=== PATIENT | male | born 1945 | race Caucasian/White ===

== ENCOUNTER 2016-08-23 08:00 | Outpatient (CLI) | payer MEDICARE, OTHER ==
[2016-08-23 11:20] LABS: BASOPHILS # (AUTO) 0.1 10^3/uL (0.0-0.1); BASOPHILS % (AUTO) 1.2 %; EOSINOPHILS # (AUTO) 0.2 10^3/uL (0.0-0.7); HCT - HEMATOCRIT 40.3 % (42.0-52.0); HGB - HEMOGLOBIN 13.3 g/dL (14.0-18.0); LYMPHOCYTES # (AUTO) 1.4 10^3/uL (1.5-3.5); MEAN CORPUSCULAR HEMOGLOBIN 29.7 pg (27.0-31.0); MEAN CORPUSCULAR HGB CONC 33.1 g/dL (32.0-36.0); MEAN CORPUSCULAR VOLUME 89.9 fL (80.0-94.0); MEAN PLATELET VOLUME 8.6 fL (7.4-11.4); MONOCYTES # (AUTO) 0.7 10^3/uL (0.0-1.0); MONOCYTES % (AUTO) 11.1 %; NEUTROPHILS # (AUTO) 3.5 10^3/uL (1.5-6.6); NEUTROPHILS % (AUTO) 59.7 %; RED BLOOD COUNT 4.48 10^6/uL (4.70-6.10); RED CELL DISTRIBUTION WIDTH 13.9 % (12.0-15.0); UNCORRECTED WHITE BLOOD COUNT 5.9 x10^3/uL; WHITE BLOOD COUNT 5.9 x10^3/uL (4.8-10.8)
[2016-08-23 11:48] LABS: ALBUMIN/GLOBULIN RATIO 1.2 (1.0-2.2); BILIRUBIN,TOTAL 0.7 mg/dL (0.2-1.0); BUN - BLOOD UREA NITROGEN 15 mg/dL (6-20); CALCIUM 8.6 mg/dL (8.5-10.3); CARBON DIOXIDE - CO2 29 mmol/L (21-32); CHLORIDE 104 mmol/L (101-111); CHOL/HDL RATIO 1.8 (<5.0); CHOLESTEROL 124 mg/dL; CREATININE 0.7 mg/dL (0.6-1.2); GFR - MDRD 111 (>89); GLUCOSE 92 mg/dL (70-100); HDL CHOLESTEROL 69 mg/dL; PHOSPHORUS 2.8 mg/dL (2.5-4.6); POTASSIUM 3.8 mmol/L (3.5-5.0); SODIUM 139 mmol/L (135-145); TOTAL PROTEIN 6.5 g/dL (6.7-8.2); TRIGLYCERIDES 37 mg/dL
[2016-08-23 11:51] LABS: BILIRUBIN,DIRECT < 0.1 mg/dL (0.1-0.5)
[2016-08-23 12:09] LABS: LDL CHOLESTEROL,DIRECT 41 mg/dL
[2016-08-23 13:21] LABS: HEMOGLOBIN A1C 0.76 g/dL
== END 2016-08-23 08:01 | disposition home or self-care (01) ==
LOC: LAB.F 08:00
PROVIDERS: ATTEND Internal Medicine Rheumatology
DX: M35.3 Polymyalgia rheumatica (principal); I10 Essential (primary) hypertension; E10.9 Type 1 diabetes mellitus without complications
CPT/HCPCS: 36415; 80053; 80061; 80069; 80076; 82248; 83036; 84100; 85025; 85651; 86140

== ENCOUNTER 2018-02-17 08:44 | Day surgery (SDC) | payer MEDICARE, OTHER ==
[2018-02-17] MEDS ORDERED: ceFAZolin 2 GM/50 ML 2 GM/50 ML BAG IV ONE (08:53)
--- NOTE | 2018-02-17 09:26 | ANESTHESIA ---
Pre-Anesthesia VS, & Labs - Diagnosis umbilical hernia - Procedure umbilical hernia repair Vital Signs: Temp Pulse Resp BP Pulse Ox 36.5 C 59 L 16 140/59 H 100 02/17/18 09:00 02/17/18 09:00 02/17/18 09:00 02/17/18 09:00 02/17/18 09:00 Height 6 ft 1 in Weight (kg) 83.7 kg - NPO >8 hours Home Medications and Allergies Carvedilol [Coreg] 2.5 mg PO BID 05/21/13 Insulin Lispro [Humalog] 100 unit SQ DAILY 05/21/13 Aspirin [Adult Low Dose Aspirin EC] 81 mg PO DAILY 01/05/14 Atorvastatin [Lipitor] 20 mg PO DAILY 01/05/14 Ramipril [Altace] 10 mg PO DAILY 01/05/14 hydroCHLOROthiazide [Hydrodiuril] 25 mg PO DAILY 01/05/14 Allergies/Adverse Reactions: Allergies Allergy/AdvReac Type Severity Reaction Status Date / Time No Known Drug Allergies Allergy Verified 05/21/13 15:01 Anes History & Medical History - Anesthetic History Anesthesia Complications: reports: No previous complications Family history of Anesthesia Complications: Denies Family history of Malignant Hyperthermia: Denies - Medical History Cardiovascular: reports: Hypertension, High cholesterol Urinary: reports: Other Endocrine/Autoimmune: reports: Type 2 diabetes Smoking Status: Never smoker - Surgical History Eyes Ears Nose Throat (EENT): Tonsil/Adenoidectomy Cardiothoracic: CABG, Coronary stent Urologic: Prostatic surgery Exam General: Alert, Oriented x3, Cooperative, No acute distress Dental: Other (caps) Mouth Openin Fingerbreadth Neck Mobility: Normal Mallampati classification: II Thyromental Distance: 4-6 cm Respiratory: Lungs clear, Normal breath sounds, No respiratory distress, No accessory muscle use Cardiovascular: Normal S1, Normal S2 Cognitive Status: Within normal limits Plan Anesthesia Type: General Consent for Procedure(s) Verified and Reviewed: Yes Code Status: Attempt Resuscitation ASA classification: 2-Mild systemic disease Is this case an emergency?: No
[2018-02-17] MEDS ORDERED: LACTATED RINGERS 1,000 ML IV ONE ×2 (09:31→13:31)
[2018-02-17] MEDS ORDERED: BUPIVACAINE 0.5% PF 30 ML VIAL ONE (11:56)
[2018-02-17] MEDS ORDERED: BUPIVACAINE 0.5% PF 30 ML VIAL INFIL ONE (12:50)
[2018-02-17] MEDS ORDERED: DEXAMETHASONE 4 MG/ML VIAL IVP ONE (13:00)
[2018-02-17] MEDS ORDERED: MIDAZOLAM 2 MG/2 ML VIAL IVP ONE (13:00)
[2018-02-17] MEDS ORDERED: PROPOFOL 200 MG/20 ML VIAL IVP ONE (13:00)
[2018-02-17] MEDS ORDERED: ONDANSETRON 4 MG/2 ML VIAL IVP ONE (13:00)
[2018-02-17] MEDS ORDERED: fentaNYL 100 MCG/2 ML VIAL IVP ONE (13:00)
[2018-02-17] MEDS ORDERED: LIDOCAINE-MPF 2% 5 ML VIAL IM ONE (13:00)
[2018-02-17] MEDS ORDERED: HYDROmorphone 0.5 MG/0.5 ML SYRINGE IVP PRN (14:08)
[2018-02-17] MEDS ORDERED: HYDROcod/ACETAM 5/325 MG TABLET PO PRN (14:08)
[2018-02-17] MEDS ORDERED: ONDANSETRON 4 MG/2 ML VIAL IVP PRN (14:08)
--- NOTE | 2018-02-17 14:11 | OPERATIVE REPORT ---
Operative Report - General Procedure Date: 02/17/18 Planned Procedure: Umbilical herniorrhaphy Pre-Op Diagnosis: Umbilical hernia Procedure Performed: Umbilical herniorrhaphy with mesh Post Op Diagnosis: Umbilical hernia - Procedure Note Primary Surgeon: Vadim Marin MD Anesthesia Provider: Isaak Dunham CRNA Anesthesia Technique: General ET tube, Local (30 mL of half percent Marcaine) IV Fluids (mL): 800 Estimated Blood Loss (mL): 5 Complications: None. - Other Other Information/Narrative: OPERATIVE DESCRIPTION/REPORT: After verbal and written informed consent was obtained detailing the risks of infection, bleeding requiring transfusion with its risks, nerve injury, and , and after I met with the patient confirming the surgery and the site of the surgery, the patient was brought to the operative suite and placed supine on the operating table. Great care was taken to avoid pressure points to prevent pressure necrosis or nerve injury. Monitoring devices were applied along with TEDs and pneumatic compressive stockings (to prevent DVT). The patient received preoperative antibiotics for surgical prophylaxis. Isaak Dunham CRNA sedated and anesthetized the patient for the entire procedure. The patient was prepped and draped in the usual sterile manner. With the patient draped my initials were clearly visible. A "time in" then confirmed that the paitient was identified with 3 identifiers (name, birthdate and medical record number), the history and physical was in the chart, the signed consent confirming the procedure was in the chart, the patient was in the correct position, the aforementioned prophylactic measures were in place or given, we had the correct personnel and equipment to complete the procedure and that anesthesia, surgery and nursing were given an opportunuty to express any concerns. With the agreement of everyone in the room, we proceeded with the operation. After injecting the area with % Marcaine, a standard curvilinear umbilical incision was made and dissection was carried down to the hernia sac using a combination of Metzenbaum scissors and Bovie electrocautery. The sac was cleared of overlying adherent tissue, and the fascial defect was delineated. The fascia was cleared of any adherent tissue for a distance 1.5 cm from the defect. The sac was resected using Bovie electrocautery. The defect was closed using a 3.2 inch or [address] hernia patch (Ref#[id number], Lot#[id number], use by 2019-10-05). This was secured to the fascia using interrupted 0 PDS sutures superiorly and inferiorly utilizing the straps and trimming the excess s trap. Laterally I placed a 2-0 PDS for additional support. The patient was then given an ``innie by suturing the back of the umbilicus to the fascia using a 2-0 Vicryl. Meticulous hemostasis was obtained using Bovie electrocautery. The skin incision was approximated with a running subcuticular 4-0 Monocryl. After the prep was washed off, Dermabond was applied. A dressing was then applied. At this point a time out was performed that confirmed that all the counts were correct, the procedure that was performed, the blood loss, the IV fluids administered, and the patients condition. Having tolerated the procedure well, the patient was subsequently taken to recovery room in good and stable condition. [place]it[place] disclaimer: This document was created in part using voice recognition technology. Because of the inherent limitations of the system ([employer] user manual states that the licensee understands that speech recognition is a statistical process and that recognition errors are inherent in the process), occasional same sounding word substitutions and grammatical errors do occur and persist despite proofreading. Please read this document for context.
[2018-02-17] MEDS ORDERED: HYDROcod/ACETAM 5/325 MG TABLET ONE (15:11)
[2018-02-17 15:19] VITALS: BP 132/61
== END 2018-02-17 08:45 | disposition home or self-care (01) ==
LOC: SDS 08:44
PROVIDERS: ATTEND Surgery
PROC: 0WUF0JZ Supplement Abdominal Wall with Synthetic Substitute, Open Approach (ICD-10-PCS; principal; 2018-02-17 11:30)
DX: K42.9 Umbilical hernia without obstruction or gangrene (principal); I25.10 Atherosclerotic heart disease of native coronary artery without angina pectoris; E11.9 Type 2 diabetes mellitus without complications; Z79.4 Long term (current) use of insulin; I25.2 Old myocardial infarction; I10 Essential (primary) hypertension; E78.5 Hyperlipidemia, unspecified; N40.0 Benign prostatic hyperplasia without lower urinary tract symptoms
CPT/HCPCS: 49585; A9270; C1781; J0690; J7120

== ENCOUNTER 2018-10-06 12:33 | Outpatient (CLI) | payer MEDICARE, OTHER ==
--- NOTE | 2018-10-06 14:55 | Ultrasound Report ---
Reason: PAIN IN SCROTUM Procedure Date: 10/06/2018 Accession Number: [id number] / [id number] Procedure: US - Testicle CPT Code: FULL RESULT: EXAM: SCROTAL ULTRASOUND EXAM DATE: 10/06/2018 01:57 PM. CLINICAL HISTORY: PAIN IN SCROTUM. COMPARISON: None. TECHNIQUE: Real-time scanning was performed with static images obtained. Color-flow images were utilized. FINDINGS: Right: Testis: 4.5 x 2.6 x 3.0 cm. Normal size and echotexture. No mass, calcification, or abnormal blood flow. Epididymis: 2.6 x 1.0 x 1.5 cm. Normal size and echotexture. No mass or abnormal blood flow. Hydrocele: Small hydrocele. Varicocele: Moderate to large varicocele impinges on the testicle and deforms it slightly. Left: Testis: 3.3 x 1.6 x 2.2 cm. Normal size . Irregular contour. Heterogeneous with hypoechoic regions anteriorly and posteriorly, but no definite mass or calcification. The anterior hypoechoic area is vascular and fills with Valsalva. Epididymis: 1.7 x 1.0 x 1.6 cm. Normal size and echotexture. No mass or abnormal blood flow. Hydrocele: Trace hydrocele. Varicocele: Large varicocele. IMPRESSION: 1. Bilateral varicoceles, left larger than right, with testicular involvement, left more than right. 2. Small bilateral hydroceles. RADIA
== END 2018-10-06 12:34 | disposition home or self-care (01) ==
LOC: DI 12:33
PROVIDERS: ATTEND Nurse Practitioner Family
DX: N43.3 Hydrocele, unspecified (principal)
CPT/HCPCS: 76870

== ENCOUNTER 2020-07-21 13:03 | Outpatient (CLI) | payer MEDICARE, OTHER ==
--- NOTE | 2020-07-21 13:50 | XRAY Report ---
PROCEDURE: Knee 3 View BILAT INDICATIONS: BILAT KNEE PAIN TECHNIQUE: 3 views of the left and right knee(s) were acquired. COMPARISON: None. FINDINGS: No acute fracture identified. Scattered subchondral sclerosis and spurring. Scattered vascular calci fications incidentally noted. Trace bilateral knee effusions. Spurring at the superior pole of the pa tellas bilaterally. Mild medial joint space narrowing bilaterally. IMPRESSION: Mild bilateral knee osteoarthritis. If the patient's pain or other symptoms persist, consider further evaluation with MRI. Trace bilateral knee effusions Reviewed by: Milad Biswas MD on 07/21/2020 1:49 PM PDT Approved by: Milad Biswas MD on 07/21/2020 1:49 PM PDT Station ID: [id number]
== END 2020-07-21 13:04 | disposition home or self-care (01) ==
LOC: DI 13:03
PROVIDERS: ATTEND Family Medicine
DX: M25.561 Pain in right knee (principal); M25.562 Pain in left knee; M17.0 Bilateral primary osteoarthritis of knee

== ENCOUNTER 2020-09-15 08:00 | Outpatient (CLI) | payer MEDICARE, OTHER ==
[2020-09-15 20:10] LABS: BASOPHILS # (AUTO) 0.1 10^3/uL (0.0-0.1); BASOPHILS % (AUTO) 0.7 %; EOSINOPHILS # (AUTO) 0.5 10^3/uL (0.0-0.7); EOSINOPHILS % (AUTO) 6.7 %; HCT - HEMATOCRIT 42.2 % (42.0-52.0); HGB - HEMOGLOBIN 13.8 g/dL (14.0-18.0); LYMPHOCYTES # (AUTO) 1.6 10^3/uL (1.5-3.5); LYMPHOCYTES % (AUTO) 23.3 %; MEAN CORPUSCULAR HEMOGLOBIN 31.5 pg (27.0-31.0); MEAN CORPUSCULAR HGB CONC 32.7 g/dL (32.0-36.0); MEAN CORPUSCULAR VOLUME 96.3 fL (80.0-94.0); MEAN PLATELET VOLUME 10.5 fL (7.4-11.4); MONOCYTES # (AUTO) 0.8 10^3/uL (0.0-1.0); MONOCYTES % (AUTO) 11.6 %; NEUTROPHILS % (AUTO) 57.4 %; PLT - PLATELET COUNT 218 10^3/uL (130-450); RED BLOOD COUNT 4.38 10^6/uL (4.70-6.10); RED CELL DISTRIBUTION WIDTH 13.1 % (12.0-15.0)
[2020-09-15 20:23] LABS: CALCIUM 8.7 mg/dL (8.5-10.3); CREATININE 0.8 mg/dL (0.6-1.2); URIC ACID 4.3 mg/dL (2.6-7.2)
== END 2020-09-15 23:59 | disposition home or self-care (01) ==
LOC: LAB.S 08:00
PROVIDERS: ATTEND Emergency Medicine
DX: E10.59 Type 1 diabetes mellitus with other circulatory complications (principal); M25.572 Pain in left ankle and joints of left foot
CPT/HCPCS: 36415; 80048; 84550; 85025

== ENCOUNTER 2020-09-21 09:25 | Outpatient (CLI) | payer MEDICARE, OTHER ==
[2020-09-21 15:25] LABS: CORTISOL 10.2 ug/dL
[2020-09-21 15:29] LABS: THYROID STIMULATING HORMONE 5.07 uIU/mL (0.34-5.60)
[2020-09-21 15:41] LABS: CREATININE,URINE 85.7 mg/dL; MICROALBUM/CREATININE RATIO,UR 43.2 ug/mg (<30.0); MICROALBUMIN,URINE 3.7 mg/dL (0-300.0)
[2020-09-21 19:57] LABS: ESTIMATED AVERAGE GLUCOSE 131 mg/dL (70-100); HEMOGLOBIN A1c% 6.2 % (4.27-6.07)
== END 2020-09-21 09:26 | disposition home or self-care (01) ==
LOC: LAB.S 09:25
PROVIDERS: ATTEND Nurse Practitioner
DX: E10.42 Type 1 diabetes mellitus with diabetic polyneuropathy (principal)
CPT/HCPCS: 36415; 82043; 82533; 82570; 83036; 84443

== ENCOUNTER 2020-11-06 08:10 | Outpatient (CLI) | payer MEDICARE, OTHER ==
--- NOTE | 2020-11-06 15:25 | MRI Report ---
PROCEDURE: Knee LT W/O INDICATIONS: PAIN IN LEFT KNEE TECHNIQUE: Noncontrast sagittal PD fast spin echo and T2 fast spin echo with fat saturation, sagittal 3-D gradie nt sequence with fat saturation; coronal T1 spin echo and PD fast spin echo with fat saturation, and axial PD fast spin echo with fat saturation through the knee. COMPARISON: None. FINDINGS: Image quality: Excellent. Menisci: Complex oblique tear involving posterior horn of medial meniscus is seen extending to both s uperior and inferior articulating surfaces. Peripheral displacement of medial meniscus is noted bowin g medial collateral ligament. There is no evidence of focal lateral meniscal tear. The meniscal root ligaments appear intact. Cruciate ligaments: The anterior and posterior cruciate ligaments appear intact. Medial structures: Low to moderate grade MCL sprain/partial thickness tear is seen. The posterior obl ique ligament, semimembranosus tendon insertions, and oblique popliteal ligament, and meniscocapsular junction appear intact. Visualized portions of the pes anserinus tendons appear normal. No abnorma l bursal fluid. Lateral structures: The lateral collateral ligament, long and short heads of the biceps femoris tend on appear intact. The popliteus tendon appears normal; the popliteofibular ligament appears intact. The posterosuperior and anteroinferior popliteomeniscal fascicles appear intact. The arcuate and fa bellofibular ligaments appear intact, around the lateral inferior geniculate artery. Iliotibial band appears normal. Anterior structures: Tendinosis and low to moderate grade partial-thickness tear involving distal cm driceps tendon at its superior patella insertion is seen. Tendinosis and low-grade partial-thickness tear involving proximal patella tendon at its inferior patella insertion is also seen. No full-thickn ess tendon rupture. Patellar alignment is normal. No femoral trochlear dysplasia or ventral trochlea r prominence. No edema in the infrapatellar fat pad. Bones and cartilage: No bone marrow contusions or fractures. There is mild to moderate tricompartmen timmy osteoarthritis and chondromalacia more prominent in medial femoral tibial compartment. Joint space: There is small amount of joint fluid, no gross intra-articular loose body. Small poplit eal cyst is seen. Normal appearing synovial plicae are incidentally noted. IMPRESSION: 1. Complex oblique tear involving posterior horn of medial meniscus extending to both superior and in ferior articulating surfaces. No focal lateral meniscal tear. 2. Cruciate ligaments are intact. Low to moderate grade MCL sprain/partial thickness tear. 3. Tendinosis and low to moderate grade partial-thickness tear involving distal quadriceps tendon at its superior patella insertion. Tendinosis and low-grade partial-thickness tear involving proximal pa tella tendon at its inferior patella insertion. 4. Mild to moderate tricompartmental osteoarthritis and chondromalacia most prominent in medial femor al tibial compartment. Small amount of joint fluid, no gross loose body. Small popliteal cyst. Reviewed by: John Oliva MD on 11/06/2020 3:24 PM PDT Approved by: John Oliva MD on 11/06/2020 3:24 PM PDT Station ID: [id number]
== END 2020-11-06 08:11 | disposition home or self-care (01) ==
LOC: DI 08:10
PROVIDERS: ATTEND Family Medicine
DX: S83.232A Complex tear of medial meniscus, current injury, left knee, initial encounter (principal); S83.412A Sprain of medial collateral ligament of left knee, initial encounter; S76.122A Laceration of left quadriceps muscle, fascia and tendon, initial encounter; M17.12 Unilateral primary osteoarthritis, left knee; M94.262 Chondromalacia, left knee; M71.22 Synovial cyst of popliteal space [Baker], left knee

== ENCOUNTER 2021-04-05 08:37 | Outpatient (CLI) | payer MEDICARE, OTHER ==
[2021-04-05 09:48] LABS: BUN - BLOOD UREA NITROGEN 16 mg/dL (6-20); CALCIUM 8.7 mg/dL (8.5-10.3); CARBON DIOXIDE - CO2 28 mmol/L (21-32); CHLORIDE 102 mmol/L (101-111); CHOL/HDL RATIO 1.7 (<5.0); CHOLESTEROL 145 mg/dL; CREATININE 0.6 mg/dL (0.6-1.2); GFR - MDRD 131 (>89); GLUCOSE 131 mg/dL (70-100); HDL CHOLESTEROL 83 mg/dL; POTASSIUM 4.1 mmol/L (3.5-5.0); SODIUM 139 mmol/L (135-145); TRIGLYCERIDES 38 mg/dL
[2021-04-05 10:10] LABS: CREATININE,URINE 100.7 mg/dL; MICROALBUM/CREATININE RATIO,UR 44.7 ug/mg (<30.0); MICROALBUMIN,URINE 4.5 mg/dL (0-300.0)
--- NOTE | 2021-04-05 11:52 | Ultrasound Report ---
PROCEDURE: Aorta Screening INDICATIONS: SCREENING FOR CARDIOVASCULAR SYSTEM TECHNIQUE: Real time scanning was performed of the aorta and iliac arteries, with image documentatio n. COMPARISON: None. FINDINGS: Aorta: Proximal aortic diameter measures 2.4 x 2.4 cm. Mid-aorta measures 1.4 x 1.5 cm. Distal aor tic diameter is 1.4 x 1.5 cm. Iliac arteries: Right common iliac artery measures one by one cm. Left common iliac artery measures 1.1 x 0.9 cm. Minimal amount of atherosclerotic plaques are noted in distal abdominal aorta extending to bilateral proximal common iliac arteries. IMPRESSION: 1. No abdominal aortic aneurysm. 2. Minimal amount of atherosclerotic plaques in distal abdominal aorta and bilateral proximal common iliac arteries. Reviewed by: John Oliva MD on 04/05/2021 11:50 AM PST Approved by: John Oliva MD on 04/05/2021 11:50 AM PST Station ID: [id number]
[2021-04-05 12:19] LABS: ESTIMATED AVERAGE GLUCOSE 143 mg/dL (70-100); HEMOGLOBIN A1c% 6.6 % (4.27-6.07)
== END 2021-04-05 08:38 | disposition home or self-care (01) ==
LOC: DI 08:37
PROVIDERS: ATTEND Internal Medicine
DX: Z13.6 Encounter for screening for cardiovascular disorders (principal); E10.649 Type 1 diabetes mellitus with hypoglycemia without coma; I70.0 Atherosclerosis of aorta
CPT/HCPCS: 36415; 80048; 80061; 82043; 82570; 83036; 83721; 84443

== ENCOUNTER 2021-07-27 08:37 | Outpatient (CLI) | payer MEDICARE, OTHER ==
[2021-07-27 15:05] LABS: CREATININE,URINE 90.3 mg/dL; MICROALBUM/CREATININE RATIO,UR 16.6 ug/mg (<30.0); MICROALBUMIN,URINE 1.5 mg/dL (0-300.0)
[2021-07-27 15:20] LABS: CALCIUM 8.7 mg/dL (8.5-10.3); CREATININE 0.7 mg/dL (0.6-1.2); POTASSIUM 4.4 mmol/L (3.5-5.0)
[2021-07-27 22:21] LABS: ESTIMATED AVERAGE GLUCOSE 140 mg/dL (70-100); HEMOGLOBIN A1c% 6.5 % (4.27-6.07)
[2021-07-28 06:10] LABS: HCV AB <0.1 s/co ratio (0.0-0.9)
== END 2021-07-27 08:38 | disposition home or self-care (01) ==
LOC: LAB.S 08:37
PROVIDERS: ATTEND Internal Medicine
DX: E10.8 Type 1 diabetes mellitus with unspecified complications (principal); Z96.41 Presence of insulin pump (external) (internal); Z85.46 Personal history of malignant neoplasm of prostate; Z72.89 Other problems related to lifestyle
CPT/HCPCS: 36415; 80048; 82043; 82570; 83036; 84153; 86803

== ENCOUNTER 2021-11-29 07:59 | Outpatient (CLI) | payer MEDICARE, OTHER | END 2021-11-29 08:00 | disposition home or self-care (01) | LOC: DI 07:59 | PROVIDERS: ATTEND Internal Medicine Cardiovascular Disease | DX: I50.9 Heart failure, unspecified (principal); I25.10 Atherosclerotic heart disease of native coronary artery without angina pectoris; Z95.1 Presence of aortocoronary bypass graft | CPT/HCPCS: 93306 ==

== ENCOUNTER 2022-05-15 08:09 | Outpatient (CLI) | payer MEDICARE, OTHER ==
[2022-05-15] MEDS ORDERED: PERFLUTREN LIPID MICROSPHERES 1.65 MG/1.5 ML VIAL IVP ONE (13:55)
== END 2022-05-15 08:10 | disposition home or self-care (01) ==
LOC: DI 08:09
PROVIDERS: ATTEND Internal Medicine Cardiovascular Disease
DX: I42.5 Other restrictive cardiomyopathy (principal); I08.1 Rheumatic disorders of both mitral and tricuspid valves
CPT/HCPCS: C8929; Q9957; 93306

== ENCOUNTER 2023-04-22 08:00 | Outpatient (CLI) | payer MEDICARE, OTHER ==
--- NOTE | 2023-04-22 15:47 | XRAY Report ---
PROCEDURE: Lumbar Spine 2-3V INDICATIONS: LOW BACK PAIN TECHNIQUE: 3 views of the lumbar spine were acquired. COMPARISON: None. FINDINGS: Bones: 5 [id number] vertebrae are present. There is multilevel trace retrolisthesis. Multileve l degenerative disc and foraminal narrowing are present most severe at L5-S1. Multilevel scattered an terior osteophytes most prominent from L1 through L3. No vertebral body compression fractures. No moore spicious bony lesions. Soft tissues: Overlying bowel gas pattern is normal. Prominent colonic stool. No suspicious soft ti ssue calcifications. IMPRESSION: Multilevel disc and foraminal narrowing most severe at L5-S1. Reviewed by: Clara Rutherford MD on 04/22/2023 3:46 PM PST Approved by: Clara Rutherford MD on 04/22/2023 3:46 PM PST Station ID: [id number]
== END 2023-04-22 23:59 | disposition home or self-care (01) ==
LOC: DI.S 08:00
PROVIDERS: ATTEND Registered Nurse
DX: M62.830 Muscle spasm of back (principal); M47.816 Spondylosis without myelopathy or radiculopathy, lumbar region; M51.36 Other intervertebral disc degeneration, lumbar region; M47.817 Spondylosis without myelopathy or radiculopathy, lumbosacral region; M51.37 Other intervertebral disc degeneration, lumbosacral region

== ENCOUNTER 2023-04-24 14:50 | Emergency (ER) | payer MEDICARE, OTHER ==
[2023-04-24 15:20] LABS: BASOPHILS # (AUTO) 0.1 10^3/uL (0.0-0.1); BASOPHILS % (AUTO) 0.6 %; EOSINOPHILS # (AUTO) 0.1 10^3/uL (0.0-0.7); EOSINOPHILS % (AUTO) 1.4 %; HCT - HEMATOCRIT 44.1 % (42.0-52.0); HGB - HEMOGLOBIN 14.2 g/dL (14.0-18.0); LYMPHOCYTES # (AUTO) 1.8 10^3/uL (1.5-3.5); LYMPHOCYTES % (AUTO) 23.6 %; MEAN CORPUSCULAR HEMOGLOBIN 30.3 pg (27.0-31.0); MEAN CORPUSCULAR HGB CONC 32.2 g/dL (32.0-36.0); MEAN PLATELET VOLUME 9.7 fL (7.4-11.4); MONOCYTES # (AUTO) 0.7 10^3/uL (0.0-1.0); MONOCYTES % (AUTO) 9.3 %; NEUTROPHILS % (AUTO) 64.7 %; PLT - PLATELET COUNT 185 10^3/uL (130-450); RED BLOOD COUNT 4.69 10^6/uL (4.70-6.10); WHITE BLOOD COUNT 7.7 x10^3/uL (4.8-10.8)
[2023-04-24 15:35] LABS: ALBUMIN/GLOBULIN RATIO 1.4 (1.0-2.2); BILIRUBIN,TOTAL 0.9 mg/dL (0.2-1.0); CALCIUM 9.2 mg/dL (8.5-10.3); CREATININE 0.8 mg/dL (0.6-1.3); POTASSIUM 4.4 mmol/L (3.5-4.5); TOTAL PROTEIN 6.9 g/dL (6.4-8.9)
[2023-04-24 15:53] LABS: BILIRUBIN,URINE NEGATIVE (NEGATIVE); GLUCOSE, URINE (UA) NEGATIVE (NEGATIVE); KETONES,URINE (UA) NEGATIVE (NEGATIVE); LEUKOCYTE ESTERASE, URINE NEGATIVE (NEGATIVE); NITRITE,URINE NEGATIVE (NEGATIVE); OCCULT BLOOD,URINE NEGATIVE (NEGATIVE); PH,URINE 7.5 PH (5.0-7.5); PROTEIN,URINE NEGATIVE (NEGATIVE); UROBILINOGEN,URINE 4 E.U./dL (NORMAL)
[2023-04-24 15:54] LABS: CLARITY,URINE CLEAR (CLEAR)
--- NOTE | 2023-04-24 16:35 | ED Physician Documentation ---
History of Present Illness - Stated complaint Stated Complaint: BACK PX - Chief complaint Chief Complaint: Abd Pain - Additonal information Additional information: 78-year-old male presents emergency department for what he describes as left l ower quadrant pain. Patient reports that over 2 weeks ago while bending over and standing up he felt a sharp twinge to his back he went to walk-in clinic where they started him on a prednisone burst as well as cyclobenzaprine. He was unable to complete the prednisone course because he has type 1 diabetes and is having hard time controlling his sugars. He has an appointment for a back MRI this Friday but his main concern now is that he is starting to experience left lower quadrant abdominal pain. Patient reports that he has not had a bowel movement in about the last 4 to 5 days he is taking MiraLAX twice a day he is taken 1-2 Fleet enemas at home with minimal relief. He has had 1 abdominal hernia surgery sometime ago and has never had a history of small bowel obstruction or issues with constipation in the past. Patient says he is also been having a hard time controlling his sugars at home he said that he is using about 30 to 40% more insulin than normal. No fevers or chills no nausea vomiting. He Reports to myself that his back pain is actually not bothering him today he is mostly concerned about his abdominal pain. PD PAST MEDICAL HISTORY - Past Medical History Past Medical History: Yes Cardiovascular: Hypertension, High cholesterol Endocrine/Autoimmune: Type 1 diabetes : Other - Past Surgical History Past Surgical History: Yes Cardiovascular: CABG, Coronary stent HEENT: Tonsil/Adenoidectomy - Present Medications Home Medications: Ambulatory Orders Medication Instructions Recorded Confirmed Insulin Lispro [Humalog] 100 unit SQ DAILY 05/21/13 01/18/15 carvediloL [Coreg] 2.5 mg PO BID 05/21/13 01/18/15 Aspirin [Adult Low Dose Aspirin EC] 81 mg PO DAILY 01/05/14 01/18/15 Atorvastatin [Lipitor] 20 mg PO DAILY 01/05/14 01/18/15 Ramipril [Altace] 10 mg PO DAILY 01/05/14 01/18/15 hydroCHLOROthiazide [Hydrodiuril] 25 mg PO DAILY 01/05/14 01/18/15 Lactulose 10 gm PO QID PRN #150 ml 04/24/23 - Allergies Allergies/Adverse Reactions: Allergies Allergy/AdvReac Type Severity Reaction Status Date / Time No Known Drug Allergies Allergy Verified 04/24/23 14:53 - Social History Does the pt smoke?: No Smoking Status: Never smoker Does the pt drink ETOH?: Yes Does the pt have substance abuse?: No - Immunizations Immunizations are current?: Yes - POLST Patient has POLST: No PD ED PE NORMAL - Vitals Vital signs reviewed: Yes - General General: Alert and oriented X 3, No acute distress, Well developed/nourished - Cardiac Cardiac: RRR - Respiratory Respiratory: No respiratory distress, Clear bilaterally - Abdomen Abdomen: Normal bowel sounds - Neuro Neuro: Alert and oriented X 3, hand clipper 2-12 intact, No motor deficit, No sensory deficit, Normal speech Results - Vitals Vitals: Vital Signs - 24 hr 04/24/23 04/24/23 04/24/23 14:54 18:00 20:00 Temperature 36.8 C 36.8 C Heart Rate 61 72 72 Respiratory 16 16 16 Rate Blood Pressure 160/60 H 182/70 H 140/70 H O2 Saturation 100 97 98 Oxygen O2 Source Room air - Labs Labs: Laboratory Tests 04/24/23 04/24/23 04/24/23 15:10 15:12 15:12 WBC 7.7 RBC 4.69 L Hgb 14.2 Hct 44.1 MCV 94.0 MCH 30.3 MCHC 32.2 RDW 13.0 Plt Count 185 MPV 9.7 Neut # (Auto) 5.0 Lymph # (Auto) 1.8 [place] # (Auto) 0.7 Eos # (Auto) 0.1 Baso # (Auto) 0.1 Absolute Nucleated RBC 0.00 Nucleated RBC % 0.0 Sodium 137 Potassium 4.4 Chloride 102 Carbon Dioxide 31 Anion Gap 4.0 L BUN 15 Creatinine 0.8 Estimated GFR (MDRD) 94 Glucose 149 H Calcium 9.2 Total Bilirubin 0.9 AST 27 ALT 19 Alkaline Phosphatase 72 Total Protein 6.9 Albumin 4.0 Globulin 2.9 Albumin/Globulin Ratio 1.4 Lipase 14 Urine Color YELLOW Urine Clarity CLEAR Urine pH 7.5 Ur Specific Spicer 1.015 Urine Protein NEGATIVE Urine Glucose (UA) NEGATIVE Urine Ketones NEGATIVE Urine Occult Blood NEGATIVE Urine Nitrite NEGATIVE Urine Bilirubin NEGATIVE Urine Urobilinogen 4 H Ur Leukocyte Esterase NEGATIVE Ur Microscopic Review NOT INDICATED Urine Culture Comments NOT INDICATED - Rads (name of study) CT abd pelvis Relevant Findings:: Final report received, EMP independent interpretation of test, Other (Large volume stool in the right colon, no diverticulitis ) PD Medical Decision Making - ED course ED course: 78-year-old male presents emergency department today for abdominal pain. Patient says that he originally told the triage nurse that he was having back pain but for myself he says that his back pain actually feels better and his main concern is that he is starting to experience abdominal pain. Labs complete, no anion gap concerning for possible DKA, blood sugar 149, no other acute abnormalities or findings. CBC does not reveal any leukocytosis, RBCs mildly suppressed at 4.69. Normal hemoglobin and hematocrit. Urinalysis complete no hematuria. CT was complete which did reveal a large volume of stool burden in the right colon suggesting constipation not concerning for any small bowel obstruction. Patient reports that he has magnesium citrate at home that he plans on going home and drinking tonight to help with initiation the bowel cleansing process. A prescription of lactulose was also sent to his preferred pharmacy. I believe that patient is experiencing constipation because of his back injury he said that he is not moving around near as much is what he normally does he is doing a lot more laying around in comparison to his baseline activity. He says he also has not been drinking enough water at home and does believe that this is what is contributing to his constipation as well. Patient was told with the lactulose to make sure that he is staying plenty well-hydrated continue to monitor his blood sugar he was given strict ER return precautions was told to continue with his MRI this Friday and told to follow-up with his primary care provider outpatient. Departure - Departure Disposition: Home, Self Care Clinical Impression: Constipation Qualifiers: Constipation type: unspecified constipation type Qualified Code(s): K59.00 - Constipation, unspecified Condition: Good Instructions: ED Constipation Prescriptions: Lactulose 10 gm PO QID PRN #150 ml PRN Reason: Constipation Comments: Thank you for trusting us with your care we have sent a prescription of lactulose to your preferred pharmacy [facility] in [place]. Take the magnesium citrate that you have at home tonight to get started on your constipation and then you can take the lactulose up to 4 times a day tomorrow for your ongoing constipation. Is important that you are continuing to move around frequently to help with your bowels and drink plenty of water. Please come back and if you are starting to develop persistent nausea vomiting worsening abdominal pain, fevers chills, or any other concerning symptoms. Forms: PCP List Discharge Date/Time: 04/24/23 20:03
[2023-04-24] MEDS ORDERED: iohexoL-300 100 ML VIAL ONE (17:01)
[2023-04-24] MEDS: iohexoL-300 100 ML VIAL IVP ONE (18:34)
--- NOTE | 2023-04-24 19:14 | CT Report ---
PROCEDURE: Abdomen/Pelvis W INDICATIONS: LLQ pain CONTRAST: 100mL Omni 300 TECHNIQUE: After the administration of intravenous contrast, a CT scan of the abdomen and pelvis was performed. Images were recorded and evaluated at appropriate window settings. Reformats: coronal and sagittal. F or radiation dose reduction, the following was used: automated exposure control, adjustment of mA and /or kV according to patient size. COMPARISON: None. FINDINGS: Image quality: Diagnostic. Lower chest: Post median sternotomy. Liver: No solid mass. Hepatic steatosis. Gallbladder and biliary tree: Not distended. No calcified gallstones. No biliary ductal dilatation. Spleen: No splenomegaly. Pancreas: No pancreatic ductal dilation. Adrenals: No adrenal nodule. Kidneys and ureters: No hydronephrosis. No renal cystic lesion which requires follow up. No solid mas s. Stomach, bowel and peritoneum: Increased stool in the colon, most passed in the right colon. The appe ndix is not dilated. No small bowel obstruction. Decompressed. Lymph nodes: No central or retroperitoneal adenopathy. Vessels: No infrarenal aortic aneurysm. PELVIS Reproductive organs: Prostate brachial therapy seeds. Bladder: No stone. Pelvic lymph nodes: No pelvic adenopathy by size criteria. Bones: No aggressive osseous abnormality. L5 left pars defect. 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 M oderate bilateral hip DJD. Other: No significant ventral or inguinal hernia. IMPRESSION: 1. Large volume of stool in the right colon suggesting constipation. 2. No diverticulitis. No small bowel obstruction. No free fluid. Reviewed by: Marvin Ann MD on 04/24/2023 7:13 PM [facility] Approved by: Marvin Ann MD on 04/24/2023 7:13 PM PST Station ID: [id number]
[2023-04-24 20:08] VITALS: BP 140/70; O2SAT 98
== END 2023-04-24 20:03 | disposition home or self-care (01) ==
LOC: ED 14:50
DX: K59.00 Constipation, unspecified (principal); E10.9 Type 1 diabetes mellitus without complications; Z79.4 Long term (current) use of insulin; Z95.5 Presence of coronary angioplasty implant and graft; I10 Essential (primary) hypertension
CPT/HCPCS: 36415; 74177; 80053; 81003; 83690; 85025; 99284; Q9967; 81001; 87086

== ENCOUNTER 2023-04-26 08:33 | Outpatient (CLI) | payer MEDICARE, OTHER ==
--- NOTE | 2023-04-28 15:26 | MRI Report ---
PROCEDURE: MRI lumbar spine without contrast INDICATIONS: LUMBAR ARTHRITIS, LOW BACK PAIN TECHNIQUE: Multiplanar multisequential MRI images of the lumbar spine were obtained without intraven ous contrast. COMPARISON: None. FINDINGS: Transitional anatomy present. 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 Alignment and Curvature: There is normal bony alignment. Bone Marrow: Degenerative Modic type I endplate changes at L1-2 Spinal Cord: Conus medullaris terminates at the L1 level. Visualized cord demonstrates normal signa l and size. Paraspinal Soft Tissues: Unremarkable perivertebral soft tissues. T12-L1: Normal in appearance. L1-L2: Normal in appearance. L2-L3: Normal in appearance. L3-L4: Normal in appearance. L4-L5: Disc height is preserved. No central or foraminal stenosis. Mild facet hypertrophy noted L5-S1: Disc height is preserved. No central or foraminal stenosis. Mild facet hypertrophy noted. IMPRESSION: Mild facet arthropathy noted in the lower lumbar spine. No central or foraminal stenosis throughout t he exam Reviewed by: Sixto Guerra MD on 04/28/2023 2:24 PM AKST Approved by: Sixto Guerra MD on 04/28/2023 2:24 PM [place] Station ID: [id number]
== END 2023-04-26 08:34 | disposition home or self-care (01) ==
LOC: DI 08:33
PROVIDERS: ATTEND Registered Nurse
DX: M47.816 Spondylosis without myelopathy or radiculopathy, lumbar region (principal); M62.830 Muscle spasm of back; S33.5XXA Sprain of ligaments of lumbar spine, initial encounter

== ENCOUNTER 2023-04-26 21:53 | Outpatient (CLI) | payer MEDICARE, OTHER | END 2023-04-26 23:59 | disposition critical access hospital (66) | LOC: EMS 21:53 | DX: R42 Dizziness and giddiness (principal); R55 Syncope and collapse; E11.649 Type 2 diabetes mellitus with hypoglycemia without coma; R14.0 Abdominal distension (gaseous); R19.37 Generalized abdominal rigidity; R10.817 Generalized abdominal tenderness; I95.9 Hypotension, unspecified; I49.8 Other specified cardiac arrhythmias; R23.1 Pallor | CPT/HCPCS: A0425; A0427 ==

== ENCOUNTER 2023-04-26 22:44 | Emergency (ER) | payer MEDICARE, OTHER ==
--- NOTE | 2023-04-26 22:44 | ED Physician Documentation ---
PD HPI SYNCOPE - Stated complaint Stated Complaint: NEAR SYNCOPE, DIZZY - Additional information Additional information: BIBA. HPI from EMS, patient. Patient experienced rapid onset dizziness at approximately 9 PM tonight while at home at rest. EMS arrived to find that his blood pressure was 80/40 with heart rate in the 40s (per EMS, sinus bradycardia on initial EKG, atrial fibrillation on subsequent EKG). Additionally, fingerstick blood sugar was 73 initially; given p.o. glucose but recheck of FSBS was 59. The patient has IDDM. Patient has received approximately 250 cc NS IV en route and his blood pressure improved to 112/57, heart rate to 55-75 range. Despite the drop in blood sugar, the patient is reporting he feels much improved. Patient was T+R 2 days ago from this ED, w/u including CT A/P without conclusive diagnosis but constipation was suspected and he was prescribed lactulose. Review of Systems Constitutional: reports: Reviewed and negative Cardiac: reports: Reviewed and negative Respiratory: reports: Reviewed and negative GI: reports: Reviewed and negative Neurologic: reports: Generalized weakness. denies: Focal weakness, Numbness, Near syncope, Syncope, Seizure, Confused, Altered mental status, Headache, Head injury, LOC PD PAST MEDICAL HISTORY - Past Medical History Past Medical History: Yes Cardiovascular: High cholesterol Endocrine/Autoimmune: Type 1 diabetes - Present Medications Home Medications: Ambulatory Orders Medication Instructions Recorded Confirmed Insulin Lispro [Humalog] 100 unit SQ DAILY 05/21/13 01/18/15 carvediloL [Coreg] 2.5 mg PO BID 05/21/13 01/18/15 Aspirin [Adult Low Dose Aspirin EC] 81 mg PO DAILY 01/05/14 01/18/15 Atorvastatin [Lipitor] 20 mg PO DAILY 01/05/14 01/18/15 Ramipril [Altace] 10 mg PO DAILY 01/05/14 01/18/15 hydroCHLOROthiazide [Hydrodiuril] 25 mg PO DAILY 01/05/14 01/18/15 Lactulose 10 gm PO QID PRN #150 ml 04/24/23 - Allergies Allergies/Adverse Reactions: Allergies Allergy/AdvReac Type Severity Reaction Status Date / Time No Known Drug Allergies Allergy Verified 04/26/23 22:53 PD ED PE NORMAL - Vitals Vital signs reviewed: Yes - General General: Alert and oriented X 3, No acute distress, Well developed/nourished - HEENT HEENT: PERRL, EOMI, Moist mucous membranes - Cardiac Cardiac: RRR, No murmur - Respiratory Respiratory: No respiratory distress, Clear bilaterally - Abdomen Abdomen: Normal bowel sounds, Soft, Non tender, Non distended - Derm Derm: Normal color, Warm and dry - Neuro Neuro: Alert and oriented X 3, 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 Relevant findings are: Rate: Rate (enter#) (55) Rhythm: NSR Headrick: LAD, Anterior hemiblock Intervals: Normal VA, RBBB QRS: Normal Ischemia: Normal ST segments - Labs Labs: Laboratory Tests 04/26/23 04/26/23 04/26/23 23:12 23:12 23:12 WBC 8.6 RBC 4.01 L Hgb 12.2 L Hct 37.5 L MCV 93.5 MCH 30.4 MCHC 32.5 RDW 12.8 Plt Count 191 MPV 9.9 Neut # (Auto) 6.0 Lymph # (Auto) 1.6 Sheridan # (Auto) 0.7 Eos # (Auto) 0.2 Baso # (Auto) 0.1 Absolute Nucleated RBC 0.00 Nucleated RBC % 0.0 Sodium 134 L Potassium 3.6 Chloride 101 Carbon Dioxide 25 Anion Gap 8.0 BUN 12 Creatinine 0.7 Estimated GFR (MDRD) 109 Glucose 95 Calcium 8.8 Total Bilirubin 0.6 AST 27 ALT 17 Alkaline Phosphatase 61 Troponin I High Sens 10.6 Total Protein 6.1 L Albumin 3.6 Globulin 2.5 Albumin/Globulin Ratio 1.4 Lipase < 10 L TSH 8.77 H Nasal Adenovirus (PCR) Nasal B. parapertussis DNA (PCR) Nasal Coronavir 229E PCR Nasal Coronavir HKU1 PCR Nasal Coronavir NL63 PCR Nasal Coronavir OC43 PCR Nasal Enterovir/Rhinovir PCR Nasal Influenza B PCR Nasal Influenza A PCR Nasal Parainfluen 1 PCR Nasal Parainfluen 2 PCR Nasal Parainfluen 3 PCR Nasal Parainfluen 4 PCR Nasal RSV (PCR) Nasal B.pertussis DNA PCR Nasal C.pneumoniae (PCR) Ja Human Metapneumo PCR Nasal M.pneumoniae (PCR) Nasal SARS-CoV-2 (PCR) Ethyl Alcohol 23.5 04/26/23 23:55 WBC RBC Hgb Hct MCV MCH MCHC RDW Plt Count MPV Neut # (Auto) Lymph # (Auto) Sheridan # (Auto) Eos # (Auto) Baso # (Auto) Absolute Nucleated RBC Nucleated RBC % Sodium Potassium Chloride Carbon Dioxide Anion Gap BUN Creatinine Estimated GFR (MDRD) Glucose Calcium Total Bilirubin AST ALT Alkaline Phosphatase Troponin I High Sens Total Protein Albumin Globulin Albumin/Globulin Ratio Lipase TSH Nasal Adenovirus (PCR) NOT DETECTED Nasal B. parapertussis DNA (PCR) NOT DETECTED Nasal Coronavir 229E PCR NOT DETECTED Nasal Coronavir HKU1 PCR NOT DETECTED Nasal Coronavir NL63 PCR NOT DETECTED Nasal Coronavir OC43 PCR NOT DETECTED Nasal Enterovir/Rhinovir PCR NOT DETECTED Nasal Influenza B PCR NOT DETECTED Nasal Influenza A PCR NOT DETECTED Nasal Parainfluen 1 PCR NOT DETECTED Nasal Parainfluen 2 PCR NOT DETECTED Nasal Parainfluen 3 PCR NOT DETECTED Nasal Parainfluen 4 PCR NOT DETECTED Nasal RSV (PCR) NOT DETECTED Nasal B.pertussis DNA PCR NOT DETECTED Nasal C.pneumoniae (PCR) NOT DETECTED Ja Human Metapneumo PCR NOT DETECTED Nasal M.pneumoniae (PCR) NOT DETECTED Nasal SARS-CoV-2 (PCR) NOT DETECTED Ethyl Alcohol - Rads (name of study) cxr Relevant Findings:: Prelim report reviewed, See rad report PD Medical Decision Making - ED course Complexity details: reviewed results, re-evaluated patient, considered differential, d/w patient ED course: No concerning nor diagnostic findings on tonight's testing including CBC, ER abdominal panel. TSH mildly elevated at 8.77 (not high enough to reasonably attribute symptoms/signs to). Normal hs-cTn (10.6) and no acute findings on EKG. Respiratory PCR panel negative for viruses tested on this panel. He is given 1 L NS total (some of this liter given COAT PRESSER, remainder of the one li ter given during ED stay). He is given 1 amp D50 early in stay for 59 FSBS (COAT PRESSER). Subsequent FSBS 202. On reevaluation, he is resting comfortably. He has had normal/stable vital signs throughout ED stay. Results d/w patient. Etiology of symptoms is not apparent at this time. Return precautions discussed. I advised him to seek follow up with PCP for follow-up/reevaluation, next available appointment Departure - Departure Disposition: 01 Home, Self Care Clinical Impression: Bradycardia, Hypoglycemia Hypotension Qualifiers: Hypotension type: unspecified hypotension type Qualified Code(s): I95.9 - Hypotension, unspecified Condition: Good Instructions: ED Bradycardia, ED Hypotension All Causes, ED Diabetes Hypoglycemia Insulin React Follow-Up: Lynn Bertrand MD [Primary Care Provider] - Comments: Although your blood pressure, pulse, and blood sugar were all low before your arrival to the emergency department, the blood pressure and pulse were normalized by the time you arrived and remained within normal ranges during your emergency department stay. You were given IV dextrose in the ER for your low blood sugar given and this resulted in improvement of the blood sugar to a little over 200. There were no concerning nor diagnostic findings on tonight's test results which include EKG, cardiac enzyme (troponin), electrolytes, kidney function tests, and a chest x-ray. The cause of your abnormal vital signs and low blood sugar is not apparent at this time. As we discussed, it is very important that you follow-up as soon as you can arrange with your primary care provider. Recommend you call their office on Friday to inquire about follow-up appointment. Further testing might be needed even if you are feeling well Forms: PCP List Discharge Date/Time: 04/27/23 02:10
[2023-04-26] MEDS: DEXTROSE 50% ABBOJECT 25 GM/50 ML SYRINGE IVP STA (23:05)
[2023-04-26 23:18] LABS: BASOPHILS # (AUTO) 0.1 10^3/uL (0.0-0.1); BASOPHILS % (AUTO) 0.8 %; EOSINOPHILS # (AUTO) 0.2 10^3/uL (0.0-0.7); EOSINOPHILS % (AUTO) 2.2 %; HCT - HEMATOCRIT 37.5 % (42.0-52.0); HGB - HEMOGLOBIN 12.2 g/dL (14.0-18.0); LYMPHOCYTES # (AUTO) 1.6 10^3/uL (1.5-3.5); LYMPHOCYTES % (AUTO) 18.2 %; MEAN CORPUSCULAR HEMOGLOBIN 30.4 pg (27.0-31.0); MEAN CORPUSCULAR HGB CONC 32.5 g/dL (32.0-36.0); MEAN CORPUSCULAR VOLUME 93.5 fL (80.0-94.0); MEAN PLATELET VOLUME 9.9 fL (7.4-11.4); MONOCYTES # (AUTO) 0.7 10^3/uL (0.0-1.0); MONOCYTES % (AUTO) 8.6 %; NEUTROPHILS % (AUTO) 69.6 %; PLT - PLATELET COUNT 191 10^3/uL (130-450); RED BLOOD COUNT 4.01 10^6/uL (4.70-6.10); RED CELL DISTRIBUTION WIDTH 12.8 % (12.0-15.0); WHITE BLOOD COUNT 8.6 x10^3/uL (4.8-10.8)
[2023-04-26 23:35] LABS: ALBUMIN 3.6 g/dL (3.2-5.5); ALBUMIN/GLOBULIN RATIO 1.4 (1.0-2.2); ALKALINE PHOSPHATASE 61 IU/L (42-121); ALT ALANINE AMINOTRANSFERASE 17 IU/L (10-60); AST ASPARTATE AMINOTRANSFERASE 27 IU/L (10-42); BILIRUBIN,TOTAL 0.6 mg/dL (0.2-1.0); BUN - BLOOD UREA NITROGEN 12 mg/dL (6-20); CALCIUM 8.8 mg/dL (8.5-10.3); CARBON DIOXIDE - CO2 25 mmol/L (21-32); CHLORIDE 101 mmol/L (101-111); CREATININE 0.7 mg/dL (0.6-1.3); ETOH - ETHANOL 23.5 mg/dL; GFR - MDRD 109 (>89); GLUCOSE 95 mg/dL (74-104); POTASSIUM 3.6 mmol/L (3.5-4.5); SODIUM 134 mmol/L (135-145); TOTAL PROTEIN 6.1 g/dL (6.4-8.9)
[2023-04-26 23:36] LABS: LIPASE < 10 U/L (11-82)
--- NOTE | 2023-04-26 23:44 | XRAY Report ---
PROCEDURE: Chest 1V INDICATIONS: near syncope TECHNIQUE: One view of the chest was acquired. COMPARISON: None. FINDINGS: Surgical changes and devices: 04/25/2023. Lungs and pleura: No pleural effusions or pneumothorax. Lungs are clear. Mediastinum: Mediastinal contours appear normal. Heart size is mildly enlarged. Bones and chest wall: No suspicious bony lesions. Overlying soft tissues appear unremarkable. IMPRESSION: No acute cardiopulmonary process. Mild cardiomegaly, prior CABG. Reviewed by: Ayo Swain MD on 04/26/2023 11:43 PM PST Approved by: Ayo Swain MD on 04/26/2023 11:43 PM PST Station ID: [id number]
[2023-04-26 23:51] LABS: THYROID STIMULATING HORMONE 8.77 uIU/mL (0.34-5.60)
[2023-04-26] MEDS: SODIUM CHLORIDE 0.9% 1,000 ML IV STA (23:53)
[2023-04-27 00:51] LABS: B. PARAPERTUSSIS- RESP PCR PAN NOT DETECTED; B. PERTUSSIS- RESP PCR PANEL NOT DETECTED; C. PNEUMONIAE- RESP PCR PANEL NOT DETECTED; CORONAVIRUS 229E-RESP PCR NOT DETECTED; CORONAVIRUS HKU1-RESP PCR NOT DETECTED; CORONAVIRUS NL63-RESP PCR NOT DETECTED; CORONAVIRUS OC43-RESP PCR NOT DETECTED; HUMAN METAPNEUMOVIRUS NOT DETECTED; INFLUENZA A- RESP PCR PANEL NOT DETECTED; INFLUENZA B - RESP PCR PANEL NOT DETECTED; M. PNEUMONIAE- RESP PCR PANEL NOT DETECTED; PARAINFLUENZA VIRUS 1 NOT DETECTED; PARAINFLUENZA VIRUS 2 NOT DETECTED; PARAINFLUENZA VIRUS 3 NOT DETECTED; PARAINFLUENZA VIRUS 4 NOT DETECTED; RHINOVIRUS/ENTEROVIRUS NOT DETECTED; RSV- RESP PCR PANEL NOT DETECTED; SARS-CoV-2 -RESP PCR PANEL NOT DETECTED
[2023-04-27 02:14] VITALS: BP 116/53; O2SAT 97
== END 2023-04-27 02:10 | disposition home or self-care (01) ==
LOC: EDUNIT# → ED 22:44
DX: S33.5XXA Sprain of ligaments of lumbar spine, initial encounter (principal); X58.XXXA Exposure to other specified factors, initial encounter; I95.9 Hypotension, unspecified; R00.1 Bradycardia, unspecified; E10.649 Type 1 diabetes mellitus with hypoglycemia without coma; Z79.4 Long term (current) use of insulin; M47.816 Spondylosis without myelopathy or radiculopathy, lumbar region; M62.830 Muscle spasm of back
CPT/HCPCS: 36415; 71045; 72148; 80053; 83690; 84443; 84484; 85025; 87633; 93005; 96361; 96374; 99284; G0480; 82077

== ENCOUNTER 2023-09-25 08:37 | Outpatient (CLI) | payer MEDICARE, OTHER ==
[2023-09-25 09:29] LABS: CHOL/HDL RATIO 1.7 (<5.0); CHOLESTEROL 111 mg/dL; HDL CHOLESTEROL 67 mg/dL; LDL CHOLESTEROL,CALCULATED 35 mg/dL; LDL/HDL RATIO 0.5 (<3.6); TRIGLYCERIDES 47 mg/dL; VLDL CHOLESTEROL 9 mg/dL
[2023-09-25 11:24] LABS: ESTIMATED AVERAGE GLUCOSE 134 mg/dL (70-100); HEMOGLOBIN A1c% 6.3 % (4.27-6.07)
== END 2023-09-25 08:38 | disposition home or self-care (01) ==
LOC: LAB 08:37
PROVIDERS: ATTEND Internal Medicine Cardiovascular Disease
DX: E10.59 Type 1 diabetes mellitus with other circulatory complications (principal); R60.0 Localized edema; I25.10 Atherosclerotic heart disease of native coronary artery without angina pectoris; R53.83 Other fatigue; N40.0 Benign prostatic hyperplasia without lower urinary tract symptoms; I25.2 Old myocardial infarction
CPT/HCPCS: 36415; 80061; 83036; G0103; 83721; 84153